=== PATIENT | male | born 1935 | race Caucasian/White ===

== ENCOUNTER 2018-08-24 04:09 | Inpatient (IN) | payer OTHER ==
[~2018-08-24] VITALS: Ht 182.9 cm; Wt 98.4 kg
[2018-08-24] VITALS (7 sets, daily range): BP systolic 97–126; BP diastolic 54–77
[2018-08-24] MEDS ORDERED: TRAZODONE HCL50 MG PO (04:17)
[2018-08-24] MEDS ORDERED: LIPITOR10 MG PO (04:19)
[2018-08-24] MEDS ORDERED: LOPRESSOR25 PO (04:20)
[2018-08-24] MEDS ORDERED: PROTONIX 20 MG20 M1 PO (04:20)
[2018-08-24] MEDS ORDERED: CARDIZEM30 MG PO (04:20)
[2018-08-24] MEDS ORDERED: COUMADIN 1MG TAB1 M1 PO (04:20)
[2018-08-24] MEDS ORDERED: MILLIPRED DP5 M1 (04:21)
[2018-08-24 04:30] LABS: HEMATOCRIT 41.8 % (42.0-52.0); HEMOGLOBIN 13.9 gm/dL (14.0-18.0); MCH 29.6 pg (26.0-34.0); MCHC 33.4 g/dL (28.0-37.0); MCV 88.9 fL (80.0-100.0); MPV 7.5 fl. (7.2-11.1); NUCLEATED RBCS 0 /100WBC; PLATELET COUNT* 396 thou/uL (150-400); RDW-CV 15.8 % (10.5-14.5); WBC 19.7 thou/uL (4.0-11.0)
[2018-08-24 04:39] LABS: ANION GAP 7 mmol/L (7-16); BUN 12 mg/dL (7-18); CALCIUM 8.7 mg/dL (8.5-10.1); CHLORIDE 102 mmol/L (98-107); CO2 28 mmol/L (21-32); GLUCOSE 149 mg/dL (70-99); POTASSIUM 4.2 mmol/L (3.5-5.1); SODIUM 137 mmol/L (136-145)
[2018-08-24 04:41] LABS: INR 2.2; PROTIME 22.4 Seconds (9.20-11.50)
[2018-08-24 04:47] LABS: ABSOLUTE LYMPHOCYTES 0.4 thou/uL (0.8-5.3); ABSOLUTE MONOCYTES 1.6 thou/uL (0.0-1.2); ABSOLUTE NEUTROPHILS 17.7 thou/uL (1.6-8.1)
[2018-08-24 04:48] LABS: PLATELET ESTIMATE ADEQUATE
[2018-08-24 04:49] LABS: ALBUMIN 3.2 g/dL (3.4-5.0); ALKALINE PHOSPHATASE 77 U/L (46-116); LIPASE 126 U/L (73-393); NT-PRO BRAIN NAT PEPTIDE 579 pg/mL (<300); SGOT 14 U/L (15-37); SGPT 23 U/L (30-65); TOTAL BILIRUBIN 0.6 mg/dL (<0.1-1.0); TOTAL PROTEIN 7.1 g/dL (6.4-8.2); TROPONIN-I LEVEL <0.06 ng/mL (<0.06)
[2018-08-24] MEDS ORDERED: BUMETANIDE0.25 MG/1 INH (05:42)
[2018-08-24] MEDS ORDERED: MELATONIN3 MG PO (05:47)
[2018-08-24] MEDS ORDERED: SYMBICORT160 MCG/4. INH (05:49)
[2018-08-24] MEDS ORDERED: COZAAR 25 MG TA25 M1 PO (05:51)
[2018-08-24 08:50] LABS: URINE BILIRUBIN NEGATIVE (Negative); URINE BLOOD NEGATIVE (Negative); URINE CLARITY CLEAR; URINE COLOR YELLOW; URINE GLUCOSE-RANDOM NEGATIVE (Negative); URINE KETONES NEGATIVE (Negative); URINE LEUKOCYTES-REFLEX NEGATIVE (Negative); URINE NITRITE-REFLEX NEGATIVE (Negative); URINE PROTEIN NEGATIVE (Negative); URINE SPECIFIC GRAVITY 1.025 (1.005-1.030)
[2018-08-24] MEDS ORDERED: COUMADIN 5 MG TA5 M1 PO (10:06)
[2018-08-24] MEDS ORDERED: ASPIR 8181 MG PO (10:16)
--- NOTE | 2018-08-24 16:06 | EKG ---
[place] [address] ELECTROCARDIOGRAM REPORT Name: BART PEARSON Room: [address] ADM IN M.R.#: [id number] Admission: 08/24/18 Attend Phys: Rosa Garner MD Discharge: Date of : 39 Report #: [id number] THIS REPORT FOR: //name// [facility] Test Date: 2018-08-24 Test Time: 04:13:42 Pat Name: BART PEARSON Department: Room: [facility] Gender: M Barge [facility] 1935 Requested By: Alicia Whitman Order Number: [id number] MD: Hernandez Mays Measurements Intervals [place] Rate: 129 P: TX: QRS: 45 QRSD: 137 T: 38 QT: 329 QTc: 482 Interpretive Statements Atrial fibrillation Right bundle branch block No previous ECG available for comparison Electronically Signed On 08-24-2018 16:05:59 FINISH GRINDER by Hernandez Mays [email or web address] <ELECTRONICALLY SIGNED> By: Hernandez Mays MD, [facility] 08/24/18 1605 [id number] [id number] Hernandez Mays MD, FACC /EPI
[2018-08-25] VITALS: BP 105/71
[2018-08-25 04:00] VITALS: BP 108/66
[2018-08-25 06:15] LABS: ABSOLUTE LYMPHOCYTES 0.7 thou/uL (0.8-5.3); ABSOLUTE MONOCYTES 0.3 thou/uL (0.0-1.2); ABSOLUTE NEUTROPHILS 11.7 thou/uL (1.6-8.1); BASOPHILS 0.1 %; LYMPHOCYTES 5.4 %; MCH 29.6 pg (26.0-34.0); MCHC 32.5 g/dL (28.0-37.0); MCV 91.2 fL (80.0-100.0); MONOCYTES 2.1 %; MPV 7.7 fl. (7.2-11.1); NUCLEATED RBCS 0 /100WBC; PLATELET COUNT* 327 thou/uL (150-400); POLYS 92.4 %; RBC 4.06 mil/uL (4.50-6.00); WBC 12.7 thou/uL (4.0-11.0)
[2018-08-25 06:22] LABS: CALCIUM 8.2 mg/dL (8.5-10.1); POTASSIUM 3.9 mmol/L (3.5-5.1)
[2018-08-25 08:00] VITALS: BP 123/69
[2018-08-25 12:01] VITALS: BP 120/62
[2018-08-25 16:17] VITALS: BP 107/65
--- NOTE | 2018-08-25 18:06 | 2DMMODE ---
[place] [address] 2 D/M-MODE ECHOCARDIOGRAM Name: BART PEARSON Room: [address] IN [facility]#: [id number] Admission: 08/24/18 Attend Phys: Rosa Garner, Discharge: Date of : 39 Date of Service: 08/25/18 1805 Report #: [id number] THIS REPORT FOR: //name// APPROVED REPORT Study performed: 08/25/2018 16:12:14 EXAM: Comprehensive 2D, Doppler, and color-flow Echocardiogram Patient Location: In-Patient Room #: [facility] [place] [facility] [place] Status: routine BSA: 2.21 HR: 85 bpm BP: 120/62 mmHg Rhythm: NSR Other Information Study Quality: Good Indications Congestive Heart Failure Dyspnea 2D Dimensions IVSd: 9.72 (7-11mm) LVOT Diam: 22.66 (18-24mm) LVDd: 48.68 mm PWd: 10.49 (7-11mm) Ascending Ao: 39.16 (22-36mm) LVDs: 31.30 (25-40mm) Aortic Root: 39.94 mm Volumes Left Atrial Volume (Systole) LA ESV Index: 34.60 mL/m2 Aortic Valve AoV Peak Shashank.: 1.15 m/s AO Peak Gr.: 5.28 mmHg LVOT Max P.43 mmHg AO Mean Gr.: 3.24 mmHg LVOT Mean P.23 mmHg LVOT Max V: 0.78 m/s AO V2 VTI: 21.47 cm LVOT Mean V: 0.51 m/s JAE (VTI): 2.95 cm2 LVOT V1 VTI: 15.71 cm Mitral Valve MV Decel. Time: 153.21 ms MV PHT: 44.43 [place] [address] 2 D/M-MODE ECHOCARDIOGRAM Name: BART PEARSON Room: [address] IN [facility].#: [id number] Admission: 08/24/18 Attend Phys: Rosa Garner, Discharge: Date of : 39 Date of Service: 08/25/18 1805 Report #: [id number] MVA (PHT): 4.95 cm2 Pulmonary Valve PV Peak Shashank.: 0.80 m/s PV Peak Gr.: 2.55 mmHg Tricuspid Valve RAP Estimate: 5.00 mmHg TR Peak Gr.: 26.02 mmHg RVSP: 31.00 mmHg PA Pressure: 31.00 mmHg Left Ventricle The left ventricle is normal size. There is normal LV segmental wall motion. There is normal left ventricular wall thickness. Left ventricular systolic function is normal. LVEF is 60-65%. This study is not technically sufficient to allow evaluation of the LV diastolic function. Right Ventricle The right ventricle is normal size. The right ventricular systolic function is normal. Atria Left atrium is mildly dilated. The right atrium size is normal. Aortic Valve The aortic valve is normal in structure. No aortic regurgitation is present. There is no aortic valvular stenosis. Mitral Valve The mitral valve is normal in structure. Mild mitral regurgitation. Trace to mild mitral regurgitation. No evidence of mitral valve stenosis. Tricuspid Valve The tricuspid valve is normal in structure. Mild tricuspid regurgitation. The RVSP is 32 mmHg. Pulmonic Valve The pulmonary valve is normal in structure. There is no pulmonic valvular regurgitation. Great Vessels Aortic root is mildly dilated. IVC is normal in size and collapses >50% [place] [address] 2 D/M-MODE ECHOCARDIOGRAM Name: LILIBART Marie Room: [address] IN ..#: [id number] Admission: 08/24/18 Attend Phys: Rosa Garner, Discharge: Date of : 39 Date of Service: 08/25/18 1805 Report #: [id number] Pericardium There is no pericardial effusion. <Conclusion> The left ventricle is normal size. There is normal left ventricular wall thickness. Left ventricular systolic function is normal. LVEF is 60-65%. Left atrium is mildly dilated. Mild mitral regurgitation. Mild tricuspid regurgitation. The RVSP is 32 mmHg. Aortic root is mildly dilated. IVC is normal in size and collapses >50% with inspiration. <ELECTRONICALLY SIGNED> By: Fortunato Johnston MD, FACC 08/25/181804 04 04 Fortunato Johnston MD, FACC /INF
[2018-08-25 20:00] VITALS: BP 129/73
[2018-08-26] VITALS (7 sets, daily range): BP systolic 115–159; BP diastolic 48–82
[2018-08-26 05:40] LABS: ABSOLUTE LYMPHOCYTES 0.6 thou/uL (0.8-5.3); ABSOLUTE MONOCYTES 0.6 thou/uL (0.0-1.2); ABSOLUTE NEUTROPHILS 15.4 thou/uL (1.6-8.1); BASOPHILS 0.2 %; EOSINOPHILS 0.1 %; HEMATOCRIT 34.1 % (42.0-52.0); HEMOGLOBIN 11.2 gm/dL (14.0-18.0); LYMPHOCYTES 3.6 %; MCH 28.8 pg (26.0-34.0); MCHC 32.8 g/dL (28.0-37.0); MCV 87.9 fL (80.0-100.0); MONOCYTES 3.9 %; MPV 7.7 fl. (7.2-11.1); NUCLEATED RBCS 0 /100WBC; PLATELET COUNT* 365 thou/uL (150-400); POLYS 92.2 %; RBC 3.88 mil/uL (4.50-6.00); WBC 16.7 thou/uL (4.0-11.0)
[2018-08-26 05:56] LABS: CREATININE 0.9 mg/dL (0.6-1.3); POTASSIUM 3.9 mmol/L (3.5-5.1)
[2018-08-26 10:20] LABS: PROTIME 20.7 Seconds (9.20-11.50)
[2018-08-27] VITALS (7 sets, daily range): BP systolic 109–139; BP diastolic 63–82
[2018-08-27 06:11] LABS: INR 2.3; PROTIME 23.4 Seconds (9.20-11.50)
[2018-08-27 06:19] LABS: ABSOLUTE LYMPHOCYTES 0.8 thou/uL (0.8-5.3); ABSOLUTE MONOCYTES 0.6 thou/uL (0.0-1.2); ABSOLUTE NEUTROPHILS 13.9 thou/uL (1.6-8.1); HEMATOCRIT 35.2 % (42.0-52.0); HEMOGLOBIN 11.5 gm/dL (14.0-18.0); LYMPHOCYTES 5.5 %; MCH 28.9 pg (26.0-34.0); MCHC 32.8 g/dL (28.0-37.0); MCV 88.2 fL (80.0-100.0); MONOCYTES 3.7 %; MPV 7.7 fl. (7.2-11.1); NUCLEATED RBCS 0 /100WBC; PLATELET COUNT* 397 thou/uL (150-400); POLYS 90.8 %; RBC 3.99 mil/uL (4.50-6.00); RDW-CV 15.7 % (10.5-14.5); WBC 15.3 thou/uL (4.0-11.0)
[2018-08-27 06:30] LABS: CALCIUM 8.5 mg/dL (8.5-10.1); POTASSIUM 4.1 mmol/L (3.5-5.1)
[2018-08-27] MEDS ORDERED: PREDNISONE 10 M10 MG PO (12:54)
[2018-08-27] MEDS ORDERED: DOXYCYCLINE 10100 MG PO (12:54)
[2018-08-27] MEDS ORDERED: PULMICORT0.5 MG/22 (14:27)
== END 2018-08-27 14:00 | disposition home health service (06) | DRG 177 ==
LOC: M.ERS 04:09 → M.2W 05:15 → M.TBA-ER 05:15 → M.2W 05:19
PROVIDERS: Emergency Medicine; Internal Medicine; ADMIT Internal Medicine
DX: J15.6 Pneumonia due to other Gram-negative bacteria (principal); J96.21 Acute and chronic respiratory failure with hypoxia; I50.33 Acute on chronic diastolic (congestive) heart failure; R65.11 Systemic inflammatory response syndrome (SIRS) of non-infectious origin with acute organ dysfunction; J44.0 Chronic obstructive pulmonary disease with (acute) lower respiratory infection; I11.0 Hypertensive heart disease with heart failure; I48.91 Unspecified atrial fibrillation; Z87.891 Personal history of nicotine dependence; Z79.82 Long term (current) use of aspirin; Z79.899 Other long term (current) drug therapy; Z28.21 Immunization not carried out because of patient refusal